=== PATIENT | female | born 1940 | race Caucasian/White ===

== ENCOUNTER 2016-07-17 20:42 | Inpatient (IN) | payer OTHER ==
[~2016-07-17] VITALS: Ht 157.5 cm; Wt 55.0 kg
[~2016-07-17 20:42] MED LIST: ACETAMINOPHEN325 M1 PO; ACIDOPHILUS1 EAC4 PO; ACTONEL35 MG PO; ADVAIR HFA120 INHALA IH; AMLODIPINE BESY10 MG PO; ASPIR 8181 M1 PO; ASPIRIN EC325 MG PO; ASPIRIN325 MG PO; ATORVASTATIN CA20 MG PO; AUGMENTIN875 MG PO; CEFUROXIME500 MG PO; CLONIDINE HCL0.1 MG PO; DULCOLAX10 MG PR; DUONEB 2.5-0.5 M3 ML AEROSOL; ENDOCET 5-3251 EACH PO; FISH OIL 1,0001 EA10 PO; FOSAMAX70 MG PO; FUROSEMIDE20 MG PO; GABAPENTIN300 MG PO; HYDROCHLOROTHIA25 MG PO; HYDROCODON-ACE1 EAC7 PO; INCRUSE ELLI62.5 MCG IH; K-DUR20 MEQ PO; LABETALOL HCL100 MG PO; LASIX40 MG PO; LEVAQUIN750 MG PO; LISINOPRIL20 MG PO; LISINOPRIL40 MG PO; LOPRESSOR50 MG PO; LORCET 5-325 M1 EACH PO; LOSARTAN POTAS100 MG PO; MILK OF MAGN PO; MIRALAX17 GM PO; NEURONTIN300 MG PO; NORCO 5/3251 TABLET PO; NORVASC10 MG PO; PERCOCET 5/31 TABLET PO; PLETAL100 MG PO; PREDNISONE10 MG PO; PROVENTIL,2.5 MG/0.5 AEROSOL; SERTRALINE HCL25 MG PO; SILVADENE20 GM TP; SPIRIVA RESPIMAT4 GM IH; SPIRIVA1 INHALATI IH; VANCOCIN HCL125 MG PO; ZOCOR40 MG PO; ZOLOFT25 MG PO; actonel; vicodin
[2016-07-17 22:12] LABS: MCH 27.5 PG (29.0-34.0); MCHC 30.8 G/DL (30.0-36.0); MCV 89.2 FL (83-99); MEAN PLAT.VOLUME 10.4 uM^3 (9.5-12.4); PLATELET COUNT 273 K/uL (156-360); RBC DIS.WIDTH-CV 14.2 % (11.8-14.6); RBC DIS.WIDTH-SD 45.8 % (39-53); RED BLOOD COUNT 4.26 M/uL (3.80-5.20)
[2016-07-17 22:27] LABS: CHLORIDE 104 mEq/L (99-109); POTASSIUM 3.8 mEq/L (3.7-5.4)
[2016-07-17 22:28] LABS: SODIUM 140 mEq/L (136-147)
[2016-07-17 22:29] LABS: GLUCOSE 124 mg/dL (70-99)
[2016-07-17 22:31] LABS: ANION GAP 11 MEQ/L (2-14)
[2016-07-17 22:32] LABS: TROP-I INTERPRETATION NEGATIVE; TROPONIN-I < 0.01 ng/mL (0.0-0.30)
[2016-07-17 22:33] LABS: GFR ESTIMATE (CALCULATED) 39 mL/min/
[2016-07-17 22:34] LABS: UREA NITROGEN (BUN) 20 mg/dL (9-23)
[2016-07-18] MEDS ORDERED: SPIRIVA1 INHALATI IH (00:10)
[2016-07-18] MEDS ORDERED: FOSAMAX70 MG PO (00:12)
[2016-07-18] MEDS ORDERED: PROVENTIL,2.5 MG/3 M IH (00:12)
[2016-07-18] MEDS ORDERED: KLOR-CON 1010 ME1 PO (00:12)
[2016-07-18 07:28] VITALS: BP 134/65
[2016-07-18 07:44] LABS: POINT-OF-CARE METER ID UU14162508
[2016-07-18 08:03] VITALS: BP 133/80
[2016-07-18 11:00] VITALS: BP 142/66
[2016-07-18 15:26] VITALS: BP 128/64
[2016-07-18 16:54] LABS: POINT-OF-CARE METER ID UU14162508
[2016-07-18 20:32] VITALS: BP 156/70
[2016-07-18 23:38] LABS: INFLUENZA A VIRAL ANTIGEN NEGATIVE; INFLUENZA B VIRAL ANTIGEN NEGATIVE
[2016-07-19] VITALS (7 sets, daily range): BP systolic 124–157; BP diastolic 52–80
[2016-07-19 06:56] LABS: INTERNAL CONTROL VALID? YES
[2016-07-19 07:31] LABS: EOSINOPHIL (%) 1.4 % (0-5); EOSINOPHIL COUNT 0.2 K/uL (0-0.3); HEMATOCRIT 31.9 % (36.0-46.0); IMMATURE GRANULOCYTE (%) 0.4 % (0.0-0.7); IMMATURE GRANULOCYTE COUNT 0.1 K/uL; INSTRUMENT ABS NEUTROPHIL CT 9.7 K/uL; LYMPHOCYTE COUNT 1.4 K/uL (1.0-2.8); MCH 27.8 PG (29.0-34.0); MCHC 30.7 G/DL (30.0-36.0); MCV 90.6 FL (83-99); MEAN PLAT.VOLUME 10.9 uM^3 (9.5-12.4); MONOCYTE (%) 11.7 % (3-12); MONOCYTE COUNT 1.5 K/uL (0-0.8); NEUTROPHIL (%) 75.2 % (45-76); NEUTROPHIL COUNT 9.7 K/uL (1.8-6.4); PLATELET COUNT 245 K/uL (156-360); RBC DIS.WIDTH-CV 14.2 % (11.8-14.6); RBC DIS.WIDTH-SD 47.1 % (39-53); RED BLOOD COUNT 3.52 M/uL (3.80-5.20); WHITE BLOOD COUNT 12.9 K/uL (4.1-10.2)
[2016-07-19 07:58] LABS: ALKALINE PHOSPHATASE 77 IU/L (3-129); ANION GAP 11 MEQ/L (2-14); CHLORIDE 104 MEQ/L (99-109); GFR ESTIMATE (CALCULATED) 39 mL/min/; GLUCOSE 103 mg/dL (70-99); POTASSIUM 3.8 MEQ/L (3.7-5.4); SAMPLE HEMOLYSIS CHECK 0; SAMPLE ICTERIC CHECK 0; SAMPLE LIPEMIA CHECK 0; SODIUM 141 MEQ/L (136-147); TOTAL BILIRUBIN 0.5 MG/DL (0.0-1.0); UREA NITROGEN (BUN) 17 mg/dL (9-23)
[2016-07-19 08:16] LABS: Estimated Average Glucose 123 mg/dL (70-123); HEMOGLOBIN A1c (GLYCOHEMOGLOB) 5.9 % HGB (Below 5.7)
[2016-07-19 21:37] LABS: POINT-OF-CARE METER ID UU14162508
[2016-07-20 04:00] VITALS: BP 134/64
[2016-07-20 06:35] LABS: POINT-OF-CARE METER ID UU14162508
[2016-07-20 06:49] LABS: HEMATOCRIT 34.5 % (36.0-46.0); MCH 27.9 PG (29.0-34.0); MCHC 30.4 G/DL (30.0-36.0); MCV 91.5 FL (83-99); MEAN PLAT.VOLUME 10.9 uM^3 (9.5-12.4); PLATELET COUNT 287 K/uL (156-360); RBC DIS.WIDTH-SD 47.4 % (39-53); RED BLOOD COUNT 3.77 M/uL (3.80-5.20); WHITE BLOOD COUNT 14.7 K/uL (4.1-10.2)
[2016-07-20 07:40] LABS: GFR ESTIMATE (CALCULATED) 39 mL/min/; GLUCOSE 111 mg/dL (70-99); UREA NITROGEN (BUN) 24 mg/dL (9-23)
[2016-07-20 07:41] LABS: ALKALINE PHOSPHATASE 74 IU/L (3-129); ANION GAP 12 MEQ/L (2-14); CHLORIDE 107 MEQ/L (99-109); SAMPLE HEMOLYSIS CHECK 0; SAMPLE ICTERIC CHECK 0; SAMPLE LIPEMIA CHECK 0; SODIUM 145 MEQ/L (136-147)
[2016-07-20 07:42] LABS: POTASSIUM 4.9 MEQ/L (3.7-5.4); TOTAL BILIRUBIN 0.3 MG/DL (0.0-1.0)
[2016-07-20 08:34] VITALS: BP 138/80
[2016-07-20 09:21] VITALS: BP 137/83
[2016-07-20 10:57] VITALS: BP 130/64
[2016-07-20 15:40] VITALS: BP 133/65
[2016-07-20 17:01] LABS: POINT-OF-CARE METER ID UU14162508
[2016-07-20 22:20] LABS: POINT-OF-CARE METER ID UU14162508
[2016-07-20 23:47] VITALS: BP 138/68
[2016-07-21 04:42] VITALS: BP 132/74
[2016-07-21 07:12] LABS: POINT-OF-CARE METER ID UU14162508
[2016-07-21 08:22] VITALS: BP 138/76
[2016-07-21 11:54] LABS: POINT-OF-CARE METER ID UU14162508
[2016-07-21 11:57] VITALS: BP 118/64
[2016-07-21] MEDS ORDERED: PREDNISONE20 MG PO (15:13)
[2016-07-21] MEDS ORDERED: ZITHROMAX500 MG PO (15:14)
[2016-07-21] MEDS ORDERED: VANTIN200 MG PO (15:15)
[2016-07-21 16:07] VITALS: BP 120/72
== END 2016-07-21 17:37 | disposition home or self-care (01) | DRG 190 ==
LOC: EME 20:42 → 2EAST 23:12 → EDOF 23:12 → 2EAST 07-18 07:03
PROVIDERS: Emergency Medicine; Internal Medicine; Internal Medicine Infectious Disease; Physician Assistant Medical
DX: J44.0 Chronic obstructive pulmonary disease with (acute) lower respiratory infection (principal); J15.9 Unspecified bacterial pneumonia; J96.01 Acute respiratory failure with hypoxia; J44.1 Chronic obstructive pulmonary disease with (acute) exacerbation; I13.0 Hypertensive heart and chronic kidney disease with heart failure and stage 1 through stage 4 chronic kidney disease, or unspecified chronic kidney disease; E11.22 Type 2 diabetes mellitus with diabetic chronic kidney disease; N18.3 Chronic kidney disease, stage 3 (moderate); I50.9 Heart failure, unspecified; I73.9 Peripheral vascular disease, unspecified; I87.2 Venous insufficiency (chronic) (peripheral); E11.65 Type 2 diabetes mellitus with hyperglycemia; E78.5 Hyperlipidemia, unspecified; Z87.891 Personal history of nicotine dependence; Z85.3 Personal history of malignant neoplasm of breast; Z79.82 Long term (current) use of aspirin
CPT/HCPCS: 71010; 71020; 80048; 80053; 82948; 83036; 83605; 84484; 85025; 85027; 87040; 87449; 87493; 87502; 93005; 94640; 94640 76; 94760; 94799; 99202; 99281; 99285; J0456; J0696; J1644; J1815; J7030; J7050; J7120; J7512

== ENCOUNTER 2016-07-28 04:09 | Inpatient (IN) | payer OTHER ==
[~2016-07-28] VITALS: Ht 160 cm; Wt 70.5 kg
[~2016-07-28 04:09] MED LIST changes: +KLOR-CON 1010 ME1 PO; +PREDNISONE20 MG PO; +PROVENTIL,2.5 MG/3 M IH; +VANTIN200 MG PO; +ZITHROMAX500 MG PO
[2016-07-28 05:07] LABS: CHLORIDE 105 mEq/L (99-109); POTASSIUM 4.2 mEq/L (3.7-5.4); SODIUM 139 mEq/L (136-147)
[2016-07-28 05:09] LABS: GLUCOSE 137 mg/dL (70-99)
[2016-07-28 05:10] LABS: ANION GAP 10 MEQ/L (2-14)
[2016-07-28 05:11] LABS: TOTAL BILIRUBIN 0.4 mg/dL (0.0-1.0)
[2016-07-28 05:13] LABS: ALKALINE PHOSPHATASE 75 IU/L (3-129); GFR ESTIMATE (CALCULATED) 29 mL/min/
[2016-07-28 05:14] LABS: UREA NITROGEN (BUN) 34 mg/dL (9-23)
[2016-07-28 05:16] LABS: LIPASE 68 U/L (1.0-51.0)
[2016-07-28 05:19] LABS: HEMATOCRIT 37.3 % (36.0-46.0); MCHC 30.8 G/DL (30.0-36.0); MCV 90.8 FL (83-99); MEAN PLAT.VOLUME 9.9 uM^3 (9.5-12.4); PLATELET COUNT 290 K/uL (156-360); RBC DIS.WIDTH-CV 14.5 % (11.8-14.6); RED BLOOD COUNT 4.11 M/uL (3.80-5.20); WHITE BLOOD COUNT 29.6 K/uL (4.1-10.2)
[2016-07-28 05:24] LABS: TROP-I INTERPRETATION NEGATIVE; TROPONIN-I 0.01 ng/mL (0.0-0.30)
[2016-07-28 06:39] LABS: C DIFF TOXIN POSITIVE (NEGATIVE)
[2016-07-28 06:43] LABS: PROBE CHECK PASS
[2016-07-28 09:46] LABS: ADD MIUA? NO; BILIRUBIN NEGATIVE; BLOOD NEGATIVE; COLOR YELLOW ((YELLOW)); GLUCOSE (STRIP) NEGATIVE; KETONES NEGATIVE; LEUKOCYTES NEGATIVE; NITRITE NEGATIVE; PROTEIN (STRIP) NEGATIVE; SPECIFIC GRAVITY 1.011 (1.000-1.030); UCUL ADDED? NO; UROBILINOGEN 0.2 MG/DL (0.2-1.0)
[2016-07-28 16:16] VITALS: BP 140/62
[2016-07-28] MEDS ORDERED: LIPITOR40 MG PO (18:38)
[2016-07-28] MEDS ORDERED: FOSAMAX70 MG PO (18:42)
[2016-07-28 23:16] VITALS: BP 111/65
[2016-07-29 06:56] LABS: EOSINOPHIL (%) 0.7 % (0-5); EOSINOPHIL COUNT 0.2 K/uL (0-0.3); IMMATURE GRANULOCYTE (%) 0.9 % (0.0-0.7); IMMATURE GRANULOCYTE COUNT 0.3 K/uL; LYMPHOCYTE COUNT 1.6 K/uL (1.0-2.8); MCH 27.9 PG (29.0-34.0); MCHC 29.7 G/DL (30.0-36.0); MCV 93.9 FL (83-99); MONOCYTE (%) 5.9 % (3-12); MONOCYTE COUNT 1.8 K/uL (0-0.8); NEUTROPHIL (%) 87.1 % (45-76); RBC DIS.WIDTH-SD 51.4 % (39-53); RED BLOOD COUNT 3.62 M/uL (3.80-5.20); WHITE BLOOD COUNT 30.7 K/uL (4.1-10.2)
[2016-07-29 07:08] LABS: ANION GAP 7 MEQ/L (2-14); CHLORIDE 112 MEQ/L (99-109); GFR ESTIMATE (CALCULATED) 39 mL/min/; GLUCOSE 119 mg/dL (70-99); SAMPLE HEMOLYSIS CHECK 1; SAMPLE ICTERIC CHECK 0; SAMPLE LIPEMIA CHECK 0; SODIUM 141 MEQ/L (136-147); UREA NITROGEN (BUN) 17 mg/dL (9-23)
[2016-07-29 07:10] LABS: POTASSIUM 4.3 MEQ/L (3.7-5.4)
[2016-07-29 07:35] VITALS: BP 146/71
[2016-07-29 15:05] LABS: HEMATOLOGY COMMENT 1 SMEAR COMPATIBLE; PLATELET CLUMPS PRESENT - PLATELET COUNT APPEARS ADQ.
[2016-07-29 15:50] VITALS: BP 122/62
[2016-07-29 22:37] VITALS: BP 110/57
[2016-07-30 06:50] LABS: ANION GAP 9 MEQ/L (2-14); CHLORIDE 111 MEQ/L (99-109); GFR ESTIMATE (CALCULATED) 46 mL/min/; GLUCOSE 102 mg/dL (70-99); POTASSIUM 3.5 MEQ/L (3.7-5.4); SAMPLE HEMOLYSIS CHECK 0; SAMPLE ICTERIC CHECK 0; SAMPLE LIPEMIA CHECK 0; SODIUM 142 MEQ/L (136-147); UREA NITROGEN (BUN) 11 mg/dL (9-23)
[2016-07-30 07:11] LABS: EOSINOPHIL (%) 1.1 % (0-5); EOSINOPHIL COUNT 0.2 K/uL (0-0.3); HEMATOCRIT 31.7 % (36.0-46.0); IMMATURE GRANULOCYTE (%) 1.1 % (0.0-0.7); IMMATURE GRANULOCYTE COUNT 0.2 K/uL; INSTRUMENT ABS NEUTROPHIL CT 13.8 K/uL; LYMPHOCYTE COUNT 1.6 K/uL (1.0-2.8); MCH 27.7 PG (29.0-34.0); MCV 92.4 FL (83-99); MEAN PLAT.VOLUME 10.6 uM^3 (9.5-12.4); MONOCYTE (%) 9.2 % (3-12); MONOCYTE COUNT 1.6 K/uL (0-0.8); NEUTROPHIL (%) 79.4 % (45-76); NEUTROPHIL COUNT 13.8 K/uL (1.8-6.4); PLATELET COUNT 234 K/uL (156-360); RBC DIS.WIDTH-CV 14.8 % (11.8-14.6); RBC DIS.WIDTH-SD 50.4 % (39-53); RED BLOOD COUNT 3.43 M/uL (3.80-5.20)
[2016-07-30 07:20] LABS: WHITE BLOOD COUNT 17.4 K/uL (4.1-10.2)
[2016-07-30 08:51] VITALS: BP 139/69
[2016-07-30 15:47] VITALS: BP 142/74
[2016-07-30 22:48] VITALS: BP 148/67
[2016-07-31 06:27] LABS: EOSINOPHIL COUNT 0.2 K/uL (0-0.3); HEMATOCRIT 31.4 % (36.0-46.0); IMMATURE GRANULOCYTE COUNT 0.2 K/uL; INSTRUMENT ABS NEUTROPHIL CT 11.9 K/uL; LYMPHOCYTE COUNT 1.5 K/uL (1.0-2.8); MCHC 30.9 G/DL (30.0-36.0); MCV 90.8 FL (83-99); MEAN PLAT.VOLUME 10.5 uM^3 (9.5-12.4); MONOCYTE (%) 11.7 % (3-12); MONOCYTE COUNT 1.8 K/uL (0-0.8); NEUTROPHIL (%) 76.4 % (45-76); NEUTROPHIL COUNT 11.9 K/uL (1.8-6.4); PLATELET COUNT 253 K/uL (156-360); RBC DIS.WIDTH-CV 14.6 % (11.8-14.6); RBC DIS.WIDTH-SD 48.7 % (39-53); RED BLOOD COUNT 3.46 M/uL (3.80-5.20); WHITE BLOOD COUNT 15.6 K/uL (4.1-10.2)
[2016-07-31 06:45] LABS: ANION GAP 9 MEQ/L (2-14); CHLORIDE 108 MEQ/L (99-109); GFR ESTIMATE (CALCULATED) 39 mL/min/; GLUCOSE 117 mg/dL (70-99); POTASSIUM 3.5 MEQ/L (3.7-5.4); SAMPLE HEMOLYSIS CHECK 0; SAMPLE ICTERIC CHECK 0; SAMPLE LIPEMIA CHECK 0; SODIUM 141 MEQ/L (136-147); UREA NITROGEN (BUN) 10 mg/dL (9-23)
[2016-07-31 06:46] LABS: ALKALINE PHOSPHATASE 55 IU/L (3-129); ANION GAP 7 MEQ/L (2-14); CHLORIDE 108 MEQ/L (99-109); GFR ESTIMATE (CALCULATED) 42 mL/min/; GLUCOSE 113 mg/dL (70-99); POTASSIUM 3.5 MEQ/L (3.7-5.4); SAMPLE HEMOLYSIS CHECK 0; SAMPLE ICTERIC CHECK 0; SAMPLE LIPEMIA CHECK 0; SODIUM 140 MEQ/L (136-147); TOTAL BILIRUBIN 0.5 MG/DL (0.0-1.0); UREA NITROGEN (BUN) 10 mg/dL (9-23)
[2016-07-31 09:16] VITALS: BP 135/63
[2016-07-31 17:53] VITALS: BP 130/60
[2016-07-31 20:37] VITALS: BP 127/67
[2016-07-31 21:37] LABS: GLUCOSE 128 mg/dL (70-99)
[2016-07-31 22:47] VITALS: BP 122/60
[2016-08-01 06:11] LABS: EOSINOPHIL (%) 1.6 % (0-5); EOSINOPHIL COUNT 0.2 K/uL (0-0.3); HEMATOCRIT 31.9 % (36.0-46.0); IMMATURE GRANULOCYTE (%) 0.8 % (0.0-0.7); IMMATURE GRANULOCYTE COUNT 0.1 K/uL; INSTRUMENT ABS NEUTROPHIL CT 11.2 K/uL; LYMPHOCYTE COUNT 1.2 K/uL (1.0-2.8); MCH 27.4 PG (29.0-34.0); MCHC 30.1 G/DL (30.0-36.0); MCV 91.1 FL (83-99); MEAN PLAT.VOLUME 10.8 uM^3 (9.5-12.4); MONOCYTE COUNT 1.7 K/uL (0-0.8); NEUTROPHIL (%) 77.3 % (45-76); NEUTROPHIL COUNT 11.2 K/uL (1.8-6.4); NRBC (%) 0.1 /100 WBC (0-0); PLATELET COUNT 258 K/uL (156-360); RBC DIS.WIDTH-CV 14.5 % (11.8-14.6); WHITE BLOOD COUNT 14.5 K/uL (4.1-10.2)
[2016-08-01 06:32] LABS: ALKALINE PHOSPHATASE 56 IU/L (3-129); ANION GAP 7 MEQ/L (2-14); CHLORIDE 106 MEQ/L (99-109); GFR ESTIMATE (CALCULATED) 46 mL/min/; GLUCOSE 106 mg/dL (70-99); POTASSIUM 3.8 MEQ/L (3.7-5.4); SAMPLE HEMOLYSIS CHECK 0; SAMPLE ICTERIC CHECK 0; SAMPLE LIPEMIA CHECK 0; SODIUM 139 MEQ/L (136-147); TOTAL BILIRUBIN 0.5 MG/DL (0.0-1.0); UREA NITROGEN (BUN) 11 mg/dL (9-23)
[2016-08-01 06:33] LABS: ANION GAP 7 MEQ/L (2-14); CHLORIDE 106 MEQ/L (99-109); GFR ESTIMATE (CALCULATED) 46 mL/min/; GLUCOSE 108 mg/dL (70-99); POTASSIUM 3.7 MEQ/L (3.7-5.4); SAMPLE HEMOLYSIS CHECK 0; SAMPLE ICTERIC CHECK 0; SAMPLE LIPEMIA CHECK 0; SODIUM 141 MEQ/L (136-147); UREA NITROGEN (BUN) 10 mg/dL (9-23)
[2016-08-01 08:23] VITALS: BP 134/66
[2016-08-01] MEDS ORDERED: METRONIDAZOLE500 MG PO (12:56)
[2016-08-01] MEDS ORDERED: VANCOCIN HCL125 MG PO (12:58)
== END 2016-08-01 15:44 | disposition home health service (06) | DRG 372 ==
LOC: EME → EDBD 04:09 → EDOF 07:18 → 5EAST 07:18
PROVIDERS: Emergency Medicine; Internal Medicine
DX: A04.7 Enterocolitis due to Clostridium difficile (principal); N17.9 Acute kidney failure, unspecified; N18.3 Chronic kidney disease, stage 3 (moderate); R33.9 Retention of urine, unspecified; J44.9 Chronic obstructive pulmonary disease, unspecified; Z99.81 Dependence on supplemental oxygen; I12.9 Hypertensive chronic kidney disease with stage 1 through stage 4 chronic kidney disease, or unspecified chronic kidney disease; F32.9 Major depressive disorder, single episode, unspecified; M81.0 Age-related osteoporosis without current pathological fracture; I73.9 Peripheral vascular disease, unspecified; E78.5 Hyperlipidemia, unspecified
CPT/HCPCS: 71020; 74176; 80048; 80053; 81003; 83605; 83690; 84484; 84999; 85025; 85027; 87493; 94640; 94640 76; 94799; 99202; 99281; 99285; J1644; J2405; J7030; S0030

== ENCOUNTER 2016-08-16 16:27 | Inpatient (IN) | payer OTHER ==
[~2016-08-16] VITALS: Ht 160 cm; Wt 66.8 kg
[~2016-08-16 16:27] MED LIST changes: +LIPITOR40 MG PO; +METRONIDAZOLE500 MG PO
[2016-08-16 17:48] LABS: CHLORIDE 105 mEq/L (99-109); POTASSIUM 3.6 mEq/L (3.7-5.4); SODIUM 138 mEq/L (136-147)
[2016-08-16 17:51] LABS: GLUCOSE 121 mg/dL (70-99)
[2016-08-16 17:52] LABS: ANION GAP 13 MEQ/L (2-14)
[2016-08-16 17:53] LABS: INTER. NORMALIZED RATIO 1.1; PTT 29.9 (25-32); TOTAL BILIRUBIN 0.8 mg/dL (0.0-1.0)
[2016-08-16 17:54] LABS: ALKALINE PHOSPHATASE 105 IU/L (3-129); GFR ESTIMATE (CALCULATED) 39 mL/min/
[2016-08-16 17:55] LABS: UREA NITROGEN (BUN) 21 mg/dL (9-23)
[2016-08-16 17:58] LABS: LIPASE 37 U/L (1.0-51.0)
[2016-08-16 18:04] LABS: HEMATOCRIT 38.7 % (36.0-46.0); MCH 27.8 PG (29.0-34.0); MCHC 31.8 G/DL (30.0-36.0); MCV 87.4 FL (83-99); MEAN PLAT.VOLUME 10.4 uM^3 (9.5-12.4); PLATELET COUNT 329 K/uL (156-360); RBC DIS.WIDTH-CV 14.8 % (11.8-14.6); RBC DIS.WIDTH-SD 47.6 % (39-53)
[2016-08-16 18:06] LABS: TROP-I INTERPRETATION NEGATIVE; TROPONIN-I 0.01 ng/mL (0.0-0.30)
[2016-08-16 18:11] LABS: RED BLOOD COUNT 4.43 M/uL (3.80-5.20); WHITE BLOOD COUNT 23.2 K/uL (4.1-10.2)
[2016-08-16 18:44] LABS: ABS NEUTROPHIL COUNT 21.3; ANISOCYTOSIS 1+; BAND NEUTROPHILS 14.3 % (0-8.0); EOSINOPHIL ABS CT 0.4; EOSINOPHILS 1.8 % (0-5.0); HYPOCHROMASIA 2+; INSTRUMENT ABS NEUTROPHIL CT 21.8 K/uL; LYMPHOCYTES 2.6 % (15.0-45.0); METAMYELOCYTES 0.9 %; MICROCYTOSIS 1+; PLAT.SUFFICIENCY ADEQUATE; SEG.NEUTROPHILS 77.7 % (46.0-76.0)
[2016-08-16 21:09] LABS: ADD MIUA? NO; BILIRUBIN NEGATIVE; BLOOD NEGATIVE; COLOR YELLOW ((YELLOW)); GLUCOSE (STRIP) NEGATIVE; KETONES NEGATIVE; LEUKOCYTES NEGATIVE; NITRITE NEGATIVE; PROTEIN (STRIP) NEGATIVE; SPECIFIC GRAVITY 1.011 (1.000-1.030); UCUL ADDED? NO; UROBILINOGEN 0.2 MG/DL (0.2-1.0)
[2016-08-17 01:25] VITALS: BP 122/60
[2016-08-17 07:56] LABS: HEMATOCRIT 31.2 % (36.0-46.0); MCH 28.1 PG (29.0-34.0); MCHC 31.1 G/DL (30.0-36.0); MCV 90.4 FL (83-99); MEAN PLAT.VOLUME 10.7 uM^3 (9.5-12.4); PLATELET COUNT 292 K/uL (156-360); RBC DIS.WIDTH-CV 15.2 % (11.8-14.6); RBC DIS.WIDTH-SD 49.8 % (39-53); WHITE BLOOD COUNT 26.2 K/uL (4.1-10.2)
[2016-08-17 07:58] LABS: RED BLOOD COUNT 3.45 M/uL (3.80-5.20)
[2016-08-17 08:52] LABS: ANION GAP 8 MEQ/L (2-14); CHLORIDE 111 MEQ/L (99-109); GFR ESTIMATE (CALCULATED) 46 mL/min/; GLUCOSE 133 mg/dL (70-99); POTASSIUM 3.8 MEQ/L (3.7-5.4); SAMPLE HEMOLYSIS CHECK 0; SAMPLE ICTERIC CHECK 0; SAMPLE LIPEMIA CHECK 0; SODIUM 141 MEQ/L (136-147); UREA NITROGEN (BUN) 15 mg/dL (9-23)
[2016-08-17 08:56] VITALS: BP 114/66
[2016-08-17 09:46] LABS: BASOPHIL COUNT 0.1 K/uL (0-0.1); EOSINOPHIL (%) 0.3 % (0-5); EOSINOPHIL COUNT 0.1 K/uL (0-0.3); IMMATURE GRANULOCYTE (%) 0.5 % (0.0-0.7); IMMATURE GRANULOCYTE COUNT 0.1 K/uL; INSTRUMENT ABS NEUTROPHIL CT 21.3 K/uL; LYMPHOCYTE COUNT 1.6 K/uL (1.0-2.8); MONOCYTE (%) 11.8 % (3-12); MONOCYTE COUNT 3.1 K/uL (0-0.8); NEUTROPHIL (%) 81.1 % (45-76); NEUTROPHIL COUNT 21.3 K/uL (1.8-6.4)
[2016-08-17] MEDS ORDERED: NORVASC10 MG PO (11:33)
[2016-08-17] MEDS ORDERED: LOSARTAN POTAS100 MG PO (11:34)
[2016-08-17] MEDS ORDERED: METOPROLOL TART50 MG PO (11:35)
[2016-08-17] MEDS ORDERED: SERTRALINE HCL25 MG PO (11:35)
[2016-08-17] MEDS ORDERED: GABAPENTIN300 MG PO (11:36)
[2016-08-17] MEDS ORDERED: ASPIR 8181 M1 PO (11:37)
[2016-08-17] MEDS ORDERED: LASIX20 MG PO (11:37)
[2016-08-17] MEDS ORDERED: K-DUR10 MEQ PO (11:38)
[2016-08-17] MEDS ORDERED: ACIDOPHILUS1 EAC4 PO (11:38)
[2016-08-17] MEDS ORDERED: ALBUTEROL2.5 MG/3 M IH (11:39)
[2016-08-17] MEDS ORDERED: ATORVASTATIN CA40 MG PO (11:39)
[2016-08-17] MEDS ORDERED: INCRUSE ELLI62.5 MCG IH (11:40)
[2016-08-17] MEDS ORDERED: FOSAMAX70 MG PO (11:40)
[2016-08-17] MEDS ORDERED: SPIRIVA RESPIMAT4 G1 IH (11:42)
[2016-08-17 12:33] VITALS: BP 125/61
[2016-08-17 16:01] VITALS: BP 120/58
[2016-08-17 23:34] VITALS: BP 130/58
[2016-08-18 07:13] LABS: HEMATOCRIT 31.3 % (36.0-46.0); MCH 27.8 PG (29.0-34.0); MCHC 30.7 G/DL (30.0-36.0); MCV 90.7 FL (83-99); MEAN PLAT.VOLUME 10.9 uM^3 (9.5-12.4); PLATELET COUNT 255 K/uL (156-360); RBC DIS.WIDTH-CV 15.4 % (11.8-14.6); RBC DIS.WIDTH-SD 50.9 % (39-53); RED BLOOD COUNT 3.45 M/uL (3.80-5.20)
[2016-08-18 07:43] LABS: ALKALINE PHOSPHATASE 77 IU/L (3-129); ANION GAP 8 MEQ/L (2-14); CHLORIDE 111 MEQ/L (99-109); GFR ESTIMATE (CALCULATED) 42 mL/min/; SAMPLE HEMOLYSIS CHECK 2; SAMPLE ICTERIC CHECK 0; SAMPLE LIPEMIA CHECK 0; SODIUM 140 MEQ/L (136-147); TOTAL BILIRUBIN 0.6 MG/DL (0.0-1.0); UREA NITROGEN (BUN) 16 mg/dL (9-23)
[2016-08-18 07:45] LABS: GLUCOSE 96 mg/dL (70-99)
[2016-08-18 07:46] LABS: POTASSIUM ND MEQ/L (3.7-5.4)
[2016-08-18 08:39] VITALS: BP 149/94
[2016-08-18 09:22] LABS: NO-CHARGE AST (GOT) 10 IU/L (15-37)
[2016-08-18 19:14] VITALS: BP 146/69
[2016-08-18 22:40] VITALS: BP 154/72
[2016-08-19 06:40] LABS: HEMATOCRIT 32.7 % (36.0-46.0); MCH 27.3 PG (29.0-34.0); MCV 91.1 FL (83-99); MEAN PLAT.VOLUME 10.8 uM^3 (9.5-12.4); PLATELET COUNT 251 K/uL (156-360); RBC DIS.WIDTH-CV 15.1 % (11.8-14.6); RBC DIS.WIDTH-SD 50.4 % (39-53); RED BLOOD COUNT 3.59 M/uL (3.80-5.20); WHITE BLOOD COUNT 13.6 K/uL (4.1-10.2)
[2016-08-19 07:03] LABS: ALKALINE PHOSPHATASE 81 IU/L (3-129); ANION GAP 7 MEQ/L (2-14); CHLORIDE 110 MEQ/L (99-109); GFR ESTIMATE (CALCULATED) 51 mL/min/; GLUCOSE 105 mg/dL (70-99); POTASSIUM 4.4 MEQ/L (3.7-5.4); SAMPLE HEMOLYSIS CHECK 0; SAMPLE ICTERIC CHECK 0; SAMPLE LIPEMIA CHECK 0; SODIUM 139 MEQ/L (136-147); TOTAL BILIRUBIN 0.5 MG/DL (0.0-1.0); UREA NITROGEN (BUN) 13 mg/dL (9-23)
[2016-08-19 08:34] VITALS: BP 145/70
[2016-08-19] MEDS ORDERED: VANCOMYCIN125 MG/2.5 PO (09:26)
== END 2016-08-19 12:35 | disposition home or self-care (01) | DRG 872 ==
LOC: EME 16:27 → 5EAST 22:13 → EDOF 22:13 → 5EAST 08-17 00:59
PROVIDERS: Emergency Medicine; Internal Medicine; Physician Assistant Medical
DX: A41.9 Sepsis, unspecified organism (principal); A04.7 Enterocolitis due to Clostridium difficile; N17.9 Acute kidney failure, unspecified; J44.9 Chronic obstructive pulmonary disease, unspecified; I12.9 Hypertensive chronic kidney disease with stage 1 through stage 4 chronic kidney disease, or unspecified chronic kidney disease; N18.3 Chronic kidney disease, stage 3 (moderate); E86.0 Dehydration; Z99.81 Dependence on supplemental oxygen; J96.10 Chronic respiratory failure, unspecified whether with hypoxia or hypercapnia; Z87.891 Personal history of nicotine dependence; E11.22 Type 2 diabetes mellitus with diabetic chronic kidney disease; E78.5 Hyperlipidemia, unspecified; I87.8 Other specified disorders of veins; I73.9 Peripheral vascular disease, unspecified; M19.90 Unspecified osteoarthritis, unspecified site; R33.9 Retention of urine, unspecified
CPT/HCPCS: 71010; 80048; 80053; 81003; 83605; 83690; 84484; 84999; 85025; 85027; 85610; 85730; 87040; 87493; 94640; 94640 76; 94799; 99202; 99281; 99285; J1644; J2405; J3010; J7030; J7120; S0030

== ENCOUNTER 2017-12-13 13:24 | Emergency (ER) | payer OTHER ==
[~2017-12-13] VITALS: Ht 154.9 cm; Wt 78.1 kg
[~2017-12-13 13:24] MED LIST changes: +ALBUTEROL2.5 MG/3 M IH; +ATORVASTATIN CA40 MG PO; +K-DUR10 MEQ PO; +LASIX20 MG PO; +METOPROLOL TART50 MG PO; +SPIRIVA RESPIMAT4 G1 IH; +VANCOMYCIN125 MG/2.5 PO
[2017-12-13 15:07] LABS: HEMATOCRIT 38.2 % (36.0-46.0); HEMOGLOBIN 11.8 G/DL (11.9-15.5); MCH 28.4 PG (29.0-34.0); MCHC 30.9 G/DL (30.0-36.0); MCV 91.8 FL (83-99); PLATELET COUNT 208 K/uL (156-360); RBC DIS.WIDTH-CV 14.3 % (11.8-14.6); RBC DIS.WIDTH-SD 48.2 % (39-53); RED BLOOD COUNT 4.16 M/uL (3.80-5.20); WHITE BLOOD COUNT 10.8 K/uL (4.1-10.2)
[2017-12-13 15:16] LABS: CHLORIDE 109 mEq/L (99-109); POTASSIUM 4.5 mEq/L (3.7-5.4); SODIUM 143 mEq/L (136-147)
[2017-12-13 15:18] LABS: GLUCOSE 108 mg/dL (70-99)
[2017-12-13 15:22] LABS: CREATININE 1.4 mg/dL (0.6-1.3); GFR ESTIMATE (CALCULATED) 39 mL/min/
[2017-12-13 15:23] LABS: UREA NITROGEN (BUN) 24 mg/dL (9-23)
[2017-12-13 20:10] VITALS: BP 176/67
== END 2017-12-13 20:10 | disposition home or self-care (01) ==
LOC: EME 13:24
PROVIDERS: Emergency Medicine
DX: S70.01XA Contusion of right hip, initial encounter (principal); M25.511 Pain in right shoulder; W19.XXXA Unspecified fall, initial encounter; J44.9 Chronic obstructive pulmonary disease, unspecified; Z99.81 Dependence on supplemental oxygen; I10 Essential (primary) hypertension; E78.5 Hyperlipidemia, unspecified; Z87.891 Personal history of nicotine dependence; Z85.3 Personal history of malignant neoplasm of breast; Z91.041 Radiographic dye allergy status
CPT/HCPCS: 73502; 73552; 73721; 80048; 85027; 99281; 99285